=== PATIENT | female | born 1985 | race Caucasian/White ===

== ENCOUNTER 2020-03-12 23:02 | Inpatient (IN) | payer OTHER ==
[~2020-03-12] VITALS: Ht 170.2 cm; Wt 83.0 kg
--- NOTE | ~2020-03-12 | HC ---
[facility] [place] [address] CONSULTATION Name: SHELTON BECERRA Room #: 240-P [facility] IN M.R.#: [id number] Admission: 03/13/20 Attend Phys: John Sutton MD Discharge: 03/17/20 Date of : 87 Report #: [id number] THIS REPORT FOR: cc: [facility] - Clinic physician unknown [facility] - Clinic physician unknown Jose Javier MD ~ DATE OF SERVICE: 03/16/2020 PHYSICIAN REQUESTING CONSULT: Dr. Thong Cote, Dr. John Sutton, Dr. Sterling Mckinney, Dr. Bharat Gonzalez. REASON FOR CONSULTATION: Thrombocytopenia, DVT and possible HIT antibody. HISTORY OF PRESENT ILLNESS: The patient is a 34-year-old female who was brought to the ER with mental status changes and then subsequently thought to have urosepsis with Staphylococcus bacteremia. She reportedly had been to several other ERs in the last several months, may have had a buttocks abscess. We are consulted because on admit, her platelets were 196,000, the next draw showed 84,000, next 132, 000. At the same time, her total bilirubin was elevated at 3.1, creatinine was around 4.8, albumin about 2.2. CAT scan chest, abdomen and pelvis shows innumerable pulmonary nodules unsure if infectious or malignant. Ultrasound of the right leg done last night showed a nonocclusive right common femoral and right external iliac thrombosis. She is on dialysis. The patient is unable to provide history. FAMILY HISTORY: Unobtainable and noncontributory at this point. SOCIAL HISTORY: Note that drug screen, she was positive for marijuana, opiates, benzodiazepines and amphetamines. PHYSICAL EXAMINATION: GENERAL: The patient appears her age. She is a female in the ICU on mechanical ventilator, on multiple pressors. CURRENT VITAL SIGNS: Height is reported as 5 feet 7 inches and 170.2 cm. Weight is reported today as 182 pounds or 83 kilos. Note that earlier on admit, it was 151 pounds on the and yesterday 162 pounds. The last several have been bed weights. Blood pressure is currently 119/40, respirations 29, pulse 113, currently afebrile at 98. MOOD: The patient is sedated. HEENT: Face is symmetrical. Note, there are no hemorrhages noted on her conjunctiva with membranes inside her lower eyelids. Likewise, there is no sign of microemboli in her nailbeds or her pads of her fingers or her toes. There are no signs of microemboli that I discern on skin exam. Oropharynx tubes does have some slight blood that may be from post-intubation. LUNGS: Slightly coarse and symmetric. [facility] [address] [place] [address] CONSULTATION Name: SHELTON BECERRA ETHAN Room #: 240-P DIS IN M.R.#: [id number] Admission: 03/13/20 Attend Phys: John Sutton MD Discharge: 03/17/20 Date of : 86 Report #: [id number] HEART: Regular rate, though slightly tachycardic. LYMPHATICS: No enlarged lymph nodes in the supraclavicular, cervical, axillary or inguinal region. ABDOMEN: Slightly obese. No organomegaly. It is gassy on percussion. EXTREMITIES: Without clubbing, cyanosis. There maybe 2+ or 1 mm edema at the ankles. Little bit of doughiness in the calves and upper thighs. LABORATORY DATA: Lab review: Notable for a creatinine today of 3.7. She is getting ready for dialysis. Glucose has been around 160. AST on admission 51, today's is pending. Total bilirubin 3.1 on admit, today is pending. Direct bilirubin pending. Alkaline phosphatase slightly elevated at 163 on admit, today is pending. Albumin 1.1 on today's lab draw, was 2.2 on admit. LDH drawn today is pending. No previous values. Iron levels drawn today pending. Initial INR was 1.2 on 03/15/2020. APTT initially on 03/15/2020 was 46.5, today on argatroban is recently 70.3. Fibrinogen has been good at 849. White count on admit 4, today 35.6; hemoglobin on admit 12.2, today 7.9; MCV 87, stable; platelets as mentioned above 196 on admit, today 52. Note, the patient did receive a transfusion after midnight since the lab value of 24 yesterday. The patient has increased bands and also on admit had 3 metamyelocytes. Retic count pending. Peripheral smear review pending. Haptoglobin elevated at 492. COVID antigen is negative. TSH 0.999. Ferritin elevated at 2367, folate and B12 ordered today are pending. Hepatitis B surface antibody reactive, hepatitis B surface antigen was negative. If I understand correctly, I think this means immunity, but does not suggest past infection, but we will defer to Infectious Disease. A 25-hydroxy D ordered and pending. Procalcitonin elevated at 101.25. UA notable for 2+ bilirubin. ____ nitrite positive. White cells were in clumps on admit. IMAGING: Includes of note, the CT chest, abdomen and pelvis notable for innumerable nodular pulmonary opacities and patchy areas of ground glass opacities. Nonspecific though infectious etiology including COVID the possibility, also mentioned diffuse pulmonary metastatic disease, could be considered. No malignancy noted in the abdomen or pelvis. Also, note that mentioned that the ultrasound Doppler of lower extremities done on 03/15/2020 showed right leg venous Doppler showing nonocclusive thrombus involving right common femoral vein and external iliac vein, left lower leg was clear. Upper extremities were normal except for small segment ____ IV site showing superficial small segmental thrombus. CURRENT MEDICATIONS: Include dobutamine drip, vancomycin IV, propofol IV, clindamycin IV, argatroban drip to tolerate, amiodarone, budesonide respiratory therapy, phenylephrine drip p.r.n., metoprolol p.r.n., hydrocortisone 100 mg q. 6 hours IV scheduled, ipratropium and albuterol q. 4 inhalation therapy, vasopressin p.r.n., fentanyl p.r.n., midazolam p.r.n., norepinephrine p.r.n., lorazepam p.r.n., dexmedetomidine p.r.n., sodium bicarbonate IV, [place] [address] CONSULTATION Name: HERNANSHELTON ETHAN Room #: 240-P [facility] IN M.R.#: [id number] Admission: 03/13/20 Attend Phys: John Sutton MD Discharge: 03/17/20 Date of : 86 Report #: [id number] 7 mg, pantoprazole 40 daily orally, Tylenol p.r.n. and Zofran p.r.n., IVIG 60 grams one time. ASSESSMENT AND PLAN: 1. Thrombocytopenia in setting of sepsis and deep venous thrombosis and heparin. Presentation would suggest against immune thrombocytopenic purpura and could be consistent, though it will be somewhat acute for heparin-induced thrombocytopenia, but given this concern, we will await heparin-induced antibody and I would agree with use of argatroban as an anticoagulant at this time. Could transfuse platelets to keep them above 20 or higher if bleeding. Await heparin-induced thrombocytopenia antibody, will also check iron, B12, folate. We will await peripheral smear review. Given setting, I would doubt that this is thrombotic thrombocytopenic purpura or hemolytic uremic syndrome. 2. Anemia, may be partly hydration as the patient, by records may have gained 20-30 pounds or received 20-30 pounds of fluid since admission. No signs of obvious bleeding. Await LDH and total bilirubin to try to help tell whether the patient is having hemolysis or not. We will also await peripheral smear review. Suspect this is related to the sepsis. 3. Acute kidney injury, dialysis and management per others. 4. Respiratory failure. Continue mechanical ventilation and O2 and pressor support. 5. Hypertension and urosepsis, antibiotics and pressors per others. 6. Staphylococcus bacteremia. Await transesophageal echo to look for vegetations. 7. Abnormal CT chest, may be infectious or septic emboli. We will need serial scans to follow this. 8. Polysubstance abuse. We will need social work involvement as if and when the patient improves. 9. ____ DVT, argatroban for now. This most likely be a provoked clot, though we will wait to see what other test results show up. 10. Protein-calorie malnutrition, severely malnourished. We will need nutritional support. We will follow. By: [id number] Jose Javier MD /nt
[~2020-03-12 23:02] MED LIST: ACETAMINOPHEN-1 EAC1 PO; NAPROSYN500 MG PO; NOHOMEMEDICATIONS; VEETIDS 250MG250 M1 PO
[2020-03-12 23:03] VITALS: BP 117/74
[2020-03-12 23:25] LABS: HEMATOCRIT 36.6 % (37.0-47.0); HEMOGLOBIN 12.2 gm/dL (12.0-15.0); MCH 29.1 pg (26.0-34.0); MCHC 33.4 g/dL (28.0-37.0); PLATELET COUNT 196 thou/uL (150-400); RBC 4.21 mil/uL (4.20-5.00); RDW 12.9 % (10.5-14.5)
[2020-03-12 23:31] LABS: CALCIUM 7.9 mg/dL (8.5-10.1); CREATININE 4.8 mg/dL (0.6-1.0); POTASSIUM 3.2 mmol/L (3.5-5.1)
[2020-03-12 23:38] LABS: ALBUMIN 2.2 g/dL (3.4-5.0); TOTAL BILIRUBIN 3.1 mg/dL (0.2-1.0); TOTAL PROTEIN 6.8 g/dL (6.4-8.2)
[2020-03-12 23:57] LABS: URINE BILIRUBIN 2+ (Negative); URINE BLOOD 1+ (Negative); URINE CLARITY SL CLOUDY; URINE COLOR YELLOW; URINE GLUCOSE-RANDOM* TRACE (Negative); URINE KETONES TRACE (Negative); URINE LEUKOCYTES-REFLEX TRACE (Negative); URINE NITRITE-REFLEX POSITIVE (Negative); URINE PROTEIN (DIPSTICK) 2+ (Negative); URINE SPECIFIC GRAVITY 1.025 (1.005-1.035)
[2020-03-12 23:59] LABS: ICTOTEST (BILI CONFIRMATORY) Positive (Negative)
[2020-03-13] VITALS (19 sets, daily range): BP systolic 98–117; BP diastolic 44–74
--- NOTE | 2020-03-13 00:08 | NUR ---
CALLED KAREN AT [phone]
[2020-03-13 00:21] LABS: ABSOLUTE NEUTROPHILS 3.6 thou/uL (1.4-8.2); METAMYELOCYTES 3 %
[2020-03-13 00:36] LABS: SQUAMOUS 4-10 Moderate /LPF (0-3)
[2020-03-13 00:37] LABS: BACTERIA-REFLEX 1-9 Few /HPF (None Seen); CASTS None Seen /LPF (None Seen); CRYSTALS None Seen /LPF (None Seen); MUCUS 0-3 Light strn/LPF (None Seen); TRANSITIONAL EPITHEL CELL 0-3 Few /LPF (None Seen); URINE RBC 0-2 Rare /HPF (0-2); URINE WBC-REFLEX >25 Many /HPF (0-5); WBC CLUMPS Few (None Seen)
[2020-03-13 02:14] LABS: TROPONIN-I 0.14 ng/mL (<0.06)
[2020-03-13 02:56] LABS: BE(vivo) -9.1 mmol/L (-2 to +3); PCO2 23.2 mmHg (35.0-45.0); PO2 87.3 mmHg (80.0-100.0); pH 7.398 (7.360-7.450); sO2 96.8 % (92.0-98.0)
--- NOTE | 2020-03-13 07:39 | NUR ---
Patient here from the ER at 0610. Admitted to room 240. Patient awake and talking, unable to move self from ER cart to ICU bed. Patient yelled out in pain. States that her whole body hurts, aches. Patient is able to participate in admission. Takes no medication. Doesn't have a pharmacy and has no pervious medical history. Her home life seems irratic as she sometimes stays with her sister and her family has temporary guardianship of her children. See documentation on interventions for assessment details.
--- NOTE | 2020-03-13 08:57 | EKG ---
[address] [place] [address] ELECTROCARDIOGRAM REPORT Name: SHELTON BECERRA ETHAN Room #: 240-P ADM IN M.R.#: [id number] Admission: 03/13/20 Attend Phys: Brandee Mckeon MD Discharge: Date of : 86 Report #: [id number] [facility] ED Test Date: 2020-03-12 Test Time: 23:30:54 Pat Name: SHELTON BECERRA Department: Room: 240 Gender: F Planning Aide: DOUG : 1985 Requested By: Federico Johnson Order Number: [id number] MD: Austin Greenberg Measurements Intervals Ada Rate: 148 P: 81 GA: 37 QRS: 69 QRSD: 114 T: 27 QT: 283 QTc: 445 Interpretive Statements SINUS TACHYCARDIA Artifact in lead(s) V3,V4 No previous ECG available for comparison Electronically Signed On 03-13-2020 8:57:17 [employer] by Austin Greenberg [email or web address] <ELECTRONICALLY SIGNED> By: Austin Greenberg MD, [facility] 03/13/20 0857 2330 2330 Austin Greenberg MD, FACC /EPI
--- NOTE | 2020-03-13 12:30 | NUR ---
SPOKE WITH DR WHITAKER AND UPDATED HIM ON PATIENT'S LAB AND STATUS
--- NOTE | 2020-03-13 14:30 | NUR ---
DR ELLIS IN TO EXAMINE PATIENT AND AWARE OF LESION ON RT BUTTOCK. PIÑA CATH INSERTED URINE FOR DRUG SCREEN OBTAINED AND MRSA CULTURE TAKEN TO LAB. PATIENT IS WATCHING TV AND ON THE PHONE. HEART RATE REMAINS ELEVATED AND O2 AT 2L WITH SAT'S IN THE UPPER TO MID 90'S WILL CONTINUE TO MONITOR.
--- NOTE | 2020-03-13 15:00 | NUR ---
SPOKE WITH SHELTON SANTILLAN PER THE PATIENT REQUEST AND UPDATED HER ON PATIENT STATUS. ALSO SPOKE WITH MARLEE ISRAEL AND UPDATED HER PER THE PATIENT REQUEST.
[2020-03-13 15:44] LABS: AMP/METHAMP POSITIVE (Negative); BARBITURATES Negative (Negative); BENZODIAZEPINES POSITIVE (Negative); COCAINE Negative (Negative); METHADONE Negative (Negative); OPIATES POSITIVE (Negative); PCP Negative (Negative)
--- NOTE | 2020-03-13 16:00 | NUR ---
SPOKE WITH PATIENT'S BOYFRIEND AND UPDATED HIM TO THE PATIENT STATUS AND POC. PATIENT ALSO UPDATED ON THE POC
--- NOTE | 2020-03-13 22:03 | HC ---
[facility] [place] [address] [place] [address] CONSULTATION Name: SHELTON BECERRA Room #: 240-P ADM IN M.R.#: [id number] Admission: 03/13/20 Attend Phys: Brandee Mckeon MD Discharge: Date of : 87 Report #: [id number] THIS REPORT FOR: cc: [facility] - Clinic physician unknown [facility] - Clinic physician unknown Sterling Mckinney MD ~ DATE OF SERVICE: 03/13/2020 INFECTIOUS DISEASE CONSULTATION REASON FOR CONSULTATION: I was asked to evaluate concerning sepsis and acute renal failure. HISTORY OF PRESENT ILLNESS: The patient is a 34-year-old who presented to the Emergency Room after being seen at [facility] over this past week. She had furuncle to her right buttock and was treated with Bactrim. She presents now with generalized weakness, diffuse pain, shortness of breath, nonproductive cough. Decreased urine output, nausea. She does use drugs including methamphetamines. The patient denies any recent use or IV drug use. On presentation to the Emergency Room, she was hypoxic, tachycardic, dehydrated. CT scan showed bilateral pulmonary infiltrates, nodular in nature. She is placed on IV antibiotic therapy. Blood cultures were obtained. Now in the Intensive Care Unit. The patient denies any chest pain or palpitations. No abdominal pain, back or flank pain, specifically. She just states that she hurts all over. She screams out with trying to move her in any fashion. Denies any dysuria. She has had no sputum production or hemoptysis. REVIEW OF SYSTEMS: A 14-point review of systems as noted above. No additions. She denied any previous medical issues. Denies use of alcohol or recreational drugs other than marijuana and previous methamphetamines. When confronted with her drug screen, she denied that she used intravenous or other recreational drugs in the recent past. FAMILY HISTORY: Negative. SOCIAL HISTORY: As noted above. She states that she is HIV and hepatitis negative. ALLERGIES: None known. MEDICATIONS: As noted on her MAR, now on vancomycin and Zosyn. PHYSICAL EXAMINATION: VITAL SIGNS: She was afebrile and hemodynamically stable. Oxygen saturation [facility] [address] [place] [address] CONSULTATION Name: SHELTON BECERRA ETHAN Room #: 240-P [facility] IN .R.#: [id number] Admission: 03/13/20 Attend Phys: Brandee Mckeon MD Discharge: Date of : 87 Report #: [id number] was stable on room air. SKIN: She has multiple areas of folliculitis and one furuncle to her right buttock, which were in the healing stages. These are mostly on her lower extremities. No other rashes. No adenopathy. HEENT: Eyes without scleral icterus. No petechial hemorrhages. Mouth without mucositis with poor dentition. Multiple fractured teeth. Looks most consistent with methamphetamine dentition. NECK: Supple. LUNGS: Coarse breath sounds posteriorly, mostly in the mid posterior chest. HEART: Regular rate without appreciable murmur, gallop or rub. ABDOMEN: Soft, diffusely tender. She was tender all over. No appreciable mass or hepatosplenomegaly. GENITAL AND RECTAL: Not performed. EXTREMITIES: Without clubbing, cyanosis or edema. No evidence of Janeway's lesions or Osler's nodes. No petechial hemorrhages evident. NEUROLOGIC: Cranial nerves intact. Strength in upper and lower extremities within normal limits. Mood was anxious and crying out and very emotional. LABORATORY STUDIES: Reviewed. MICROBIOLOGY: Reviewed with positive blood culture for Staph 2/2. I did call [facility] noting she had a positive urine culture from February 10 with E. coli that was pansensitive and negative blood cultures at that time. IMPRESSION: A 34-year-old with staphylococcal bacteremia, bilateral pulmonary infiltrates, which are nodular in nature. Suspecting right-sided endocarditis. She has recreational drug use and I suspect likely does do intravenous drugs at some point. She has acute kidney injury with a creatinine of 4.8. RECOMMENDATIONS: We will continue with anti-staphylococcal coverage. MRSA screen. Fluid resuscitation. Echocardiogram. Repeat blood cultures. <ELECTRONICALLY SIGNED> By: Sterling Mckinney MD 03/13/202202 1620 22 Sterling Mckinney MD /nt
[2020-03-14] VITALS (38 sets, daily range): BP systolic 90–132; BP diastolic 42–68
[2020-03-14 04:19] LABS: HEMATOCRIT 33.5 % (37.0-47.0); HEMOGLOBIN 11.2 gm/dL (12.0-15.0); MCHC 33.5 g/dL (28.0-37.0); MCV 86.8 fL (80.0-100.0); RBC 3.86 mil/uL (4.20-5.00); RDW 13.1 % (10.5-14.5); WBC 2.2 thou/uL (4.0-11.0)
[2020-03-14 04:33] LABS: ALBUMIN 1.4 g/dL (3.4-5.0); CALCIUM 6.4 mg/dL (8.5-10.1); CREATININE 5.3 mg/dL (0.6-1.0); MAGNESIUM 2.1 mg/dL (1.8-2.4); PHOSPHORUS 5.5 mg/dL (2.5-4.9); POTASSIUM 3.7 mmol/L (3.5-5.1)
--- NOTE | 2020-03-14 07:31 | NUR ---
Most recent lactic acid is 4.2.Patient has increasing oxygen demand from O2 2L NC to 8L NC.QA DEVELOPER was informed.Pulmonary was consulted.Pain poorly controlled with tylenol;hydrocodone x 1 was ordered and given.IV fluids infusing.Monitor shows sinus tachy.POC continued.
--- NOTE | 2020-03-14 09:09 | 2DMMODE ---
[facility] [place] [address] 2 D/M-MODE ECHOCARDIOGRAM Name: SHELTON BECERRA ETHAN Room #: 240-P ADM IN M.R.#: [id number] Admission: 03/13/20 Attend Phys: Brandee Mckeon MD Discharge: Date of : 86 Report #: [id number] THIS REPORT FOR: cc: [facility] - Clinic physician unknown [facility] - Clinic physician unknown Austin Greenberg MD [facility] ~ APPROVED REPORT Study performed: 03/14/2020 08:33:06 EXAM: Comprehensive 2D, Doppler, and color-flow Echocardiogram Patient Location: ICU Room #: 240 Status: routine BSA: 1.68 HR: 125 bpm BP: 122/63 mmHg Rhythm: Tachycardia Other Information Study Quality: Good Indications Rule out endocarditis. Chest pain, SOB, elevated troponin. Hx: Drug abuse 2D Dimensions RVDd: 34.44 mm IVSd: 8.83 (7-11mm) LVOT Diam: 19.97 (18-24mm) LVDd: 43.39 mm PWd: 9.45 (7-11mm) LVDs: 34.34 (25-40mm) Aortic Root: 29.29 mm Volumes Left Atrial Volume (Systole) Single Plane 4CH: 19.74 mL Single Plane 2CH: 34.61 mL LA ESV Index: 18.00 mL/m2 Aortic Valve AoV Peak Reji.: 1.42 m/s AO Peak Gr.: 8.09 mmHg LVOT Max P.66 mmHg LVOT Max V: 1.19 m/s ERAN Vmax: 2.62 cm2 [facility] [address] [place] [address] 2 D/M-MODE ECHOCARDIOGRAM Name: SHELTON BECERRA ETHAN Room #: 240-P [facility] IN M.R.#: [id number] Admission: 03/13/20 Attend Phys: Brandee Mckeon, Discharge: Date of : 87 Report #: [id number] Mitral Valve E/A Ratio: 0.8 MV Decel. Time: 127.03 ms MV E Max Reji.: 0.58 m/s MV A Reji.: 0.74 m/s MV PHT: 36.84 ms IVRT: 55.36 ms Pulmonary Valve PV Peak Reji.: 1.03 m/s PV Peak Gr.: 4.27 mmHg Pulmonary Vein P Vein S: 0.62 m/s P Vein D: 0.45 m/s P Vein S/D Ratio: 1.38 Tricuspid Valve RAP Estimate: 5.00 mmHg Left Ventricle The left ventricle is normal size. There is normal LV segmental wall motion. There is normal left ventricular wall thickness. Left ventricular systolic function is normal. LVEF is 50-55%. Mild diastolic dysfunction is present. Right Ventricle The right ventricle is normal size. The right ventricular systolic function is normal. Atria The left atrium size is normal. The right atrium size is normal. Aortic Valve The aortic valve is normal in structure. No aortic regurgitation is present. There is no aortic valve vegetation seen. There is no aortic valvular stenosis. Mitral Valve The mitral valve is normal in structure. There is no mitral valve regurgitation noted. There is no mitral valve vegetation seen. No evidence of mitral valve stenosis. Tricuspid Valve The tricuspid valve is normal in structure. There is no tricuspid [facility] [address] [place] [address] 2 D/M-MODE ECHOCARDIOGRAM Name: SHELTON BECERRA [facility] Room #: 240-P [facility] IN ..#: [id number] Admission: 03/13/20 Attend Phys: Brandee Mckeon, Discharge: Date of : 87 Report #: [id number] valve regurgitation noted. Unable to assess PA pressure. There is no tricuspid valve vegetation seen. Pulmonic Valve Pulmonic valve is not well visualized. Great Vessels The aortic root is normal in size. Ascending aorta is not well visualized. IVC is normal in size and collapses >50% with inspiration. Pericardium There is no pericardial effusion. <Conclusion> Normal left ventricle size/wall thickness Ejection fraction 55% Grade 1 diastolic dysfunction Normal right ventricular size/function Normal atrial size Color-flow Doppler study performed aortic/mitral/tricuspid/pulmonary valve Normal aortic/mitral valve structure/ function No evidence of tricuspid valve insufficiency No pericardial effusion <ELECTRONICALLY SIGNED> By: Austin Greenberg MD, FACC 03/14/20908 8 8 Austin Greenberg MD, [facility] /INF
[2020-03-14 11:52] LABS: PROT/CREAT RATIO 2.3; URINE CREATININE-RANDOM* 91.9 mg/dL; URINE PROTEIN-RANDOM* 214.6 mg/dL (<11.9)
--- NOTE | 2020-03-14 12:09 | HC ---
[facility] [place] [address] CONSULTATION Name: SHELTON BECERRA Room #: 240-P ADM IN M.R.#: [id number] Admission: 03/13/20 Attend Phys: John Sutton MD Discharge: Date of : 87 Report #: [id number] THIS REPORT FOR: cc: [facility] - Clinic physician unknown [facility] - Clinic physician unknown Zamzam Valdes MD ~ REASON FOR CONSULTATION: Elevated creatinine. REASON FOR THE PRESENTATION: Not feeling well of few days' duration. HISTORY OF PRESENT ILLNESS: A 34-year-old who has not been feeling well in the last week or so. She had generalized weakness. This was associated with subjective fever. She reports that she visited with another facility on Saturday and Saturday and was discharged home. She is not known to have any previous medical problems as per the patient. She does not take any regular medications. She is not diabetic. She is not hypertensive. She reported to occasional nausea and vomiting. She also reported to occasional chest pain. The patient was found to be hypotensive and acute kidney injury with a creatinine value of 4.8 on arrival. We do not really know what her baseline is. She was also found to have lactic acidosis. Liver enzymes were also elevated. CT chest was suggestive of multiple pulmonary nodules. PAST MEDICAL HISTORY: None per the patient. PAST SURGICAL HISTORY: She denies any prior surgical history. FAMILY HISTORY: No known chronic kidney disease in the family. SOCIAL HISTORY: Denies drug or alcohol abuse. ALLERGIES: None. HOME MEDICATIONS: None. REVIEW OF SYSTEMS: GENERAL: Significant for weakness, fatigue, and malaise. CARDIOVASCULAR: Significant for chest pain. PULMONARY: Significant for shortness of breath. No cough or hemoptysis. GASTROINTESTINAL: Reduced appetite with occasional nausea and vomiting. NEUROLOGICAL: Weakness, but no syncope. SKIN: No rash or ulcerations. PHYSICAL EXAMINATION: VITAL SIGNS: Temperature is 36.5, blood pressure is 98/54. HEAD AND NECK: Emaciated and cachectic. CHEST: Limited air entry bilaterally with occasional rhonchi. [facility] [address] [place] [address] CONSULTATION Name: SHELTON BECERRA [facility] Room #: 240-P ADM IN M.R.#: [id number] Admission: 03/13/20 Attend Phys: John Sutton MD Discharge: Date of : 87 Report #: [id number] CARDIOVASCULAR: No rub detected. ABDOMEN: Soft, nontender with no hepatosplenomegaly. EXTREMITIES: Lower extremities, no edema. LABORATORY VALUES: From yesterday revealed the following: Sodium was 136, potassium was 3.2, chloride was 96, carbon dioxide was 20, anion gap was 20, BUN was 41, creatinine was 4.8. Total bilirubin is elevated at 3.1. CPK was 817. Alkaline phosphatase was 163. ASSESSMENT AND PLAN: 1. Acute kidney injury, unknown creatinine baseline. 2. Nonspecific disease with multiple complaints on presentation including generalized body aches, chest pain. The patient was ruled out for COVID-19. She is still under investigation. 3. From the renal perspective, I will initiate the appropriate workup for the patient. I will reformulate her fluid to address her acidosis. 4. Replace potassium. 5. Avoid nephrotoxic medications. 6. Continue to follow daily electrolytes, renal function panel, urine output. 7. Obtain her other facility laboratory values that were done earlier this past week. 8. We will continue to follow. <ELECTRONICALLY SIGNED> By: Zamzam Valdes MD 03/14/20 1209 0845 Zamzam Valdes MD /nt
[2020-03-14 12:24] LABS: BE(vivo) -7.1 mmol/L (-2 to +3); HCO3 15.5 mmol/L (22.0-26.0); PCO2 23.5 mmHg (35.0-45.0); PO2 59.7 mmHg (80.0-100.0); pH 7.437 (7.360-7.450); sO2 92.3 % (92.0-98.0)
--- NOTE | 2020-03-14 19:15 | NUR ---
AAOX4. VERY ANXIOUS. CRIES OUT IF TOUCHED. TACHYPNEIC AND TACHYCARDIA. ST PER TELE. POOR ORAL INTAKE. OLIGURIA PER PIÑA, SAMPLE SENT TO LAB FOR ANALYSIS. FALL PRECAUTIONS IN PLACE.
--- NOTE | 2020-03-14 19:20 | NUR ---
1919-SPOKE W/ DR. GOODEN ABOUT PT SATTING 88% ON 15L HI-JS; HE SAID VENTIMASK OR BIPAP IS FINE TO START SINCE PT IS MOUTH BREATHING. CALLED RT TO UPDATE, THEY WILL PLACE ON MASK.
[2020-03-14 20:06] LABS: COMPLEMENT-C3 118 mg/dL (82-167); COMPLEMENT-C4 11 mg/dL (12-38)
[2020-03-15] VITALS (116 sets, daily range): BP systolic 77–147; BP diastolic 30–73
[2020-03-15 02:13] LABS: BE(vivo) -3.8 mmol/L (-2 to +3); HCO3 19.8 mmol/L (22.0-26.0); PCO2 31.2 mmHg (35.0-45.0); pH 7.421 (7.360-7.450); sO2 89.9 % (92.0-98.0)
[2020-03-15 02:14] LABS: PO2 55.4 mmHg (80.0-100.0)
[2020-03-15 06:36] LABS: HEMOGLOBIN 10.4 gm/dL (12.0-15.0)
[2020-03-15 06:38] LABS: HEMATOCRIT 31.3 % (37.0-47.0); MCH 28.9 pg (26.0-34.0); MCHC 33.2 g/dL (28.0-37.0); MCV 86.9 fL (80.0-100.0); RBC 3.61 mil/uL (4.20-5.00); RDW 13.8 % (10.5-14.5)
[2020-03-15 06:45] LABS: WBC 16.8 thou/uL (4.0-11.0)
[2020-03-15 06:51] LABS: ALBUMIN 1.1 g/dL (3.4-5.0); CREATININE 5.4 mg/dL (0.6-1.0); PHOSPHORUS 7.1 mg/dL (2.5-4.9); POTASSIUM 4.5 mmol/L (3.5-5.1)
[2020-03-15 07:00] LABS: CALCIUM 5.8 mg/dL (8.5-10.1)
[2020-03-15 08:18] LABS: BE(vivo) -5.3 mmol/L (-2 to +3); HCO3 20.6 mmol/L (22.0-26.0); PCO2 41.6 mmHg (35.0-45.0); PO2 67.5 mmHg (80.0-100.0); sO2 91.9 % (92.0-98.0)
[2020-03-15 08:21] LABS: pH 7.313 (7.360-7.450)
--- NOTE | 2020-03-15 08:56 | NUR ---
vascular access consulted for cvad. PLATELETES 32, SPOKE TO RN, PT MUST GO TO IR, PLATELETES TOO LOW FOR IJ BY VAT. PT IS RENAL SO PICC NOT AN OPTION.
[2020-03-15 09:15] LABS: APTT 46.5 Seconds (24.5-32.8); INR 1.2; PROTIME 12.7 Seconds (9.3-11.4)
--- NOTE | 2020-03-15 14:00 | NUR ---
PT SISTER MARLEE UPDATED ON THE INTUBATION PROCEDURE AND CENTRAL LINE PLACEMENT BY DR. GOODEN. NOTIFIED ABOUT GENI WHALEN WISHING TO TALK TO THE HOSPITALIST. GENI WHALEN'S QUESTIONS WERE ANSWERED BY THIS RN.
[2020-03-15 14:05] LABS: BE(vivo) -6.9 mmol/L (-2 to +3); HCO3 19.6 mmol/L (22.0-26.0); PCO2 43.3 mmHg (35.0-45.0); sO2 90.1 % (92.0-98.0)
[2020-03-15 14:07] LABS: pH 7.274 (7.360-7.450)
[2020-03-15 19:19] LABS: HEMOGLOBIN 10.1 gm/dL (12.0-15.0); RBC 3.48 mil/uL (4.20-5.00); WBC 26.6 thou/uL (4.0-11.0)
[2020-03-15 19:20] LABS: HEMATOCRIT 29.8 % (37.0-47.0); MCHC 33.8 g/dL (28.0-37.0); MCV 85.7 fL (80.0-100.0); RDW 13.6 % (10.5-14.5)
--- NOTE | 2020-03-15 19:58 | NUR ---
729 NOTIFED RENAL OF CRITICAL POTASSIUM AND CREATININE DECREASED URINE OUTPUT OVER NIGHT. [address] GOODEN OF CRITICAL ABG. PT BREATHING IN 30-40'S THROUGH ENTIRE MORNING DESAT TO 85%. INTUBATED AT 1110. REMAINS MAX ON LEVO AND VASO. STARTED ON JELANI AT 1800. OUTPUT 15ML FROM [id number]. RENAL AWARE. DIALYSIS CATH AND DIALYSED @ 1730. PT AFEBRILE. NOT PROGRESSING IN PLAN OF CARE
--- NOTE | 2020-03-15 23:00 | NUR ---
ASSUMED CARE AT 1900. UPON ON ARRIVAL, O2 SATS 50%, DR. GOODEN NOTIFIED BY DAY RN JOSE, RT DENICE PATRICIO PT. VENT SETTINGS ADJUSTED, REFER TO VENT CHARTING; PT ON 3 PRESSORS, BP STABLE AT THIS TIME, AND O2 SAT RETURNED TO UPPER 90'S. 2029-DR. GOODEN AT BEDSIDE TO PLACE ART LINE. ORDERED STAT US OF BILATERAL UPPER AND LOWER EXTREMITIES TO R/O CLOTS. DR. GOODEN ALSO PLACED CONSULT TO DR. RODRIGUEZ FOR THROMBOCYTOPENIA. ORDERED PLATELET TRANSFUSION AND START ARGATROBAN DRIP. DR. ELLIS ALSO AT BEDSIDE, ABX ADJUSTED. 2254-SPOKE WITH PT'S SISTER MARLEE TO GIVE UPDATE AND OBTAIN CONSENT FOR PLT TRANSFUSION. TWO RN'S VERIFIED CONSENT OF BLOOD PRODUCT.
[2020-03-15 23:55] LABS: BE(vivo) 1.1 mmol/L (-2 to +3); HCO3 25.3 mmol/L (22.0-26.0); PCO2 38.4 mmHg (35.0-45.0); pH 7.436 (7.360-7.450); sO2 95.4 % (92.0-98.0)
[2020-03-16] VITALS (19 sets, daily range): BP systolic 84–128; BP diastolic 35–82
--- NOTE | 2020-03-16 02:24 | NUR ---
ARGATROBAN DRIP: AT 0043 03/16/20 APTT: 74.4 - DRIP RUNNING AT 0.5 MCG/KG/MIN, 2.2 ML/HR. - NO CHANGE IN SETTINGS NEEDED. NEXT APPT LAB DRAW AT 0245 03/16/20.
[2020-03-16 05:23] LABS: HEMATOCRIT 23.1 % (37.0-47.0); MCH 29.3 pg (26.0-34.0); MCHC 34.1 g/dL (28.0-37.0); MCV 85.7 fL (80.0-100.0); RBC 2.7 mil/uL (4.20-5.00); RDW 13.8 % (10.5-14.5); WBC 35.6 thou/uL (4.0-11.0)
[2020-03-16 05:52] LABS: HEMOGLOBIN 7.9 gm/dL (12.0-15.0)
[2020-03-16 06:09] LABS: ALBUMIN 1.1 g/dL (3.4-5.0); MAGNESIUM 2.3 mg/dL (1.8-2.4); PHOSPHORUS 6.8 mg/dL (2.5-4.9); POTASSIUM 4.9 mmol/L (3.5-5.1)
[2020-03-16 06:14] LABS: CREATININE 3.7 mg/dL (0.6-1.0)
[2020-03-16 06:15] LABS: CALCIUM 5.8 mg/dL (8.5-10.1)
[2020-03-16 07:08] LABS: HEP B SURFACE Ab(ANTI-HBS Reactive (()); HEPATITIS B SURFACE AG Negative (Negative)
[2020-03-16 08:40] LABS: % SATURATION 58 % (20-39); IRON 80 ug/dL (50-170); TIBC 138 ug/dL (250-450)
--- NOTE | 2020-03-16 08:46 | NUR ---
0846- NURSE TALKED WITH PATIENTS SISTER, MARLEE. UPDATED HER ON PATIENT STATUS AND TRUDY RESULTS.
[2020-03-16 08:52] LABS: ABSOLUTE RETIC COUNT 0.007 10^6/uL; OBSERVED RETIC COUNT 0.27 % (0.6-2.6)
--- NOTE | 2020-03-16 09:21 | NUR ---
cm completed initial assessment via telephone w/pt's sister, johanna and john hernández, d/t covid precaution on ICU. pt living in hotel w/john hernández. pt sister, johanna as temp custody of pt's 3 children to all ow time for pt "to get her life together." pt is not emplyeed and has [address] [facility] w/in the last 2 weeks. pt "has had problems w/her kidneys for a long time...stones, infections multiple times."/johanna. pt boyfriend reported pt "stopped eating and wouldn't get out of bed for two days." med assist to follow. cm to cont to follow.
[2020-03-16 09:25] LABS: ALBUMIN 1.1 g/dL (3.4-5.0); DIRECT BILIRUBIN 5.2 mg/dL (<0.1-0.2); TOTAL BILIRUBIN 7.2 mg/dL (0.2-1.0); TOTAL PROTEIN 4.9 g/dL (6.4-8.2)
[2020-03-16 09:36] LABS: FOLIC ACID 7.4 ng/mL (8.6-58.9)
--- NOTE | 2020-03-16 09:41 | TEE ---
[facility] [address] [place] [address] TRANSESOPHAGEAL ECHOCARDIOGRAM Name: SHELTON BECERRA ETHAN Room #: 240-P ADM IN M.R.#: [id number] Admission: 03/13/20 Attend Phys: John Sutton MD Discharge: Date of : 87 Report #: [id number] THIS REPORT FOR: cc: [facility] - Clinic physician unknown [facility] - Clinic physician unknown Austin Greenberg MD [facility] ~ APPROVED REPORT Study performed: 03/16/2020 08:07:32 EXAM: Comprehensive 2D, Doppler, and color-flow Echocardiogram Patient Location: ICU Room #: 240 Status: routine BSA: 1.85 HR: 113 bpm Rhythm: Tachycardia Indications Bacteremia Procedure After obtaining informed consent, patient underwent transesophageal echo in the Bedside. Type of Sedation : Conscious Sedation Sedation was administered by Nurse. Propofol () The TRUDY was performed without complications. Throughout the procedure, the blood pressure, pulse oximetry, cardiac rhythm, and rate were monitored. The patient tolerated the procedure without adverse effects. Recovery from conscious sedation was uneventful and vital signs were stable. Left Ventricle The left ventricle is normal size. There is normal LV segmental wall motion. There is normal left ventricular wall thickness. Left ventricular systolic function is normal. The left ventricular ejection fraction is within the normal range. LVEF is 55-60%. Right Ventricle The right ventricle is normal size. The right ventricular systolic [address] [address] TRANSESOPHAGEAL ECHOCARDIOGRAM Name: SHELTON BECERRA ETHAN Room #: 240-P ADM IN M.R.#: [id number] Admission: 03/13/20 Attend Phys: John Sutton, Discharge: Date of : 87 Report #: [id number] function is normal. Atria The left atrium size is normal. The right atrium size is normal. Aortic Valve The aortic valve is normal in structure. No aortic regurgitation is present. There is no aortic valvular stenosis. Mitral Valve The mitral valve is normal in structure. There is no mitral valve regurgitation noted. No evidence of mitral valve stenosis. Tricuspid Valve The tricuspid valve is normal in structure. There is no tricuspid valve regurgitation noted. Pulmonic Valve The pulmonary valve is normal in structure. There is no pulmonic valvular regurgitation. Great Vessels The aortic root is normal in size. Pericardium There is no pericardial effusion. <Conclusion> Consent was previously obtained Esophageal probe was advanced without difficulty Normal ventricular size/wall thickness Ejection fraction 60% Left atrial appendage, moderate size, no evidence of mass or clot detected Normal atrial size Color-flow Doppler study was performed of the aortic/mitral/tricuspid/pulmonary valve Normal aortic/mitral valve structure and function. No obvious mass or vegetation detected Tricuspid valve was well seen, no obvious mass or vegetation detected No evidence of tricuspid valve insufficiency [facility] [address] [place] [address] TRANSESOPHAGEAL ECHOCARDIOGRAM Name: SHELTON BECERRA Room #: 240-P ADM IN M.R.#: [id number] Admission: 03/13/20 Attend Phys: John Sutton, Discharge: Date of : 87 Report #: [id number] No pericardial effusion. Patient tolerated procedure well. <ELECTRONICALLY SIGNED> By: Austin Greenberg MD, FACC 03/16/20939 9 9 Austin Greenberg MD, FACC /INF
--- NOTE | 2020-03-16 14:58 | NUR ---
1458- NURSE UPDATED PATIENTS SISTER, MARLEE, ON STATUS, QUESTIONS WERE ANSWERED.
--- NOTE | 2020-03-16 15:58 | NUR ---
1230- Patient was sinus rhythm, Dr. Cote placed another central line secondary to multiple medications being infused. Patient went into afib with line placement. Dr. Cote informed of this. Amiodarone being continued at this time, current rate.
--- NOTE | 2020-03-16 18:15 | NUR ---
1814- Patient o2 saturation decreased to the upper 80%, nurse provided suction, which yielded moderate amount of bright red blood. Nurse informed RT of this, O2 saturation increased to 90%. Nurse to continue to monitor. Since going off dialysis, nurse was able to decrease need for pressors, however slow progression for need of increased rates of pressors noted.
--- NOTE | 2020-03-16 20:00 | NUR ---
Patient not progressing towards plan of care as evidenced by increased need for pressors, and continued hemodynamic instability. Plan of care is to continue to monitor patients vital signs through the arterial line, and assess patient as needed.
[2020-03-16 20:07] LABS: HEMATOLOGY COMMENTS Note: (()); HEMOGLOBIN 7.5 g/dL (11.1-15.9)
[2020-03-16 20:10] LABS: MCV 87.2 fL (80.0-100.0)
[2020-03-16 20:13] LABS: MCH 29.1 pg (26.0-34.0); MCHC 33.3 g/dL (28.0-37.0); RBC 1.7 mil/uL (4.20-5.00); RDW 14.1 % (10.5-14.5); WBC 30.6 thou/uL (4.0-11.0)
[2020-03-16 20:19] LABS: HEMATOCRIT 14.8 % (37.0-47.0); HEMOGLOBIN 4.9 gm/dL (12.0-15.0)
--- NOTE | 2020-03-16 20:32 | NUR ---
ASSUMED CARE AT 1900. NOTED CONTINUOUS BLEEDING AT NEW RIGHT SUBCLAVIAN LINE AND LG AMT BLOOD THROUGH IN-LINE SUCTION. PAGE TO DR. GOODEN, CBC ORDERED. 2030-CRITICAL HGB 4.9 AND HCT 14.8, AND PLT DOWN TO 20. NOTIFIED DR. GOODEN, WHO ORDERED TWO UNITS OF PRBC TO START, WELL A UNIT OF DONOR PLT, AND RECHECK CBC AFTER 2ND UNIT COMPLETE.
[2020-03-16 23:32] LABS: BE(vivo) -7.9 mmol/L (-2 to +3); HCO3 20.1 mmol/L (22.0-26.0); PCO2 54.6 mmHg (35.0-45.0); PO2 42.3 mmHg (80.0-100.0); pH 7.183 (7.360-7.450); sO2 65.5 % (92.0-98.0)
[2020-03-16 23:54] LABS: HEMATOCRIT 21.7 % (37.0-47.0); MCH 29.1 pg (26.0-34.0); MCHC 32.2 g/dL (28.0-37.0); MCV 90.4 fL (80.0-100.0); PLATELET COUNT 51 thou/uL (150-400); RBC 2.41 mil/uL (4.20-5.00); RDW 14.2 % (10.5-14.5); WBC 30.2 thou/uL (4.0-11.0)
[2020-03-17 00:45] VITALS: BP 57/41; BP 71/43
[2020-03-17 01:04] LABS: ABSOLUTE NEUTROPHILS 27.2 thou/uL (1.4-8.2)
[2020-03-17 01:05] LABS: ANISOCYTOSIS 1+; BURR CELLS 1+; LARGE PLATELETS FEW; OVALOCYTES 1+; PLATELET ESTIMATE DECREASED; POIKILOCYTOSIS 1+
--- NOTE | 2020-03-17 04:17 | NUR ---
2200-COPIOUS BLEEDING FROM RIGHT SUBCLAVIAN SITE, AND SOILED DIALYSIS CATH SITE; BOTH DRESSINGS CHANGED. 2300-RESTRAINTS OFF, PT NOT RESPONDING TO PAINFUL STIMULI. PT STATUS IN DECLINE, HR ELEVATED, BP DECREASED-DEPENDENT ON FOUR PRESSORS, UNABLE TO GET AN O2 SAT ON THE PULSE OX. TWO UNITS OF PRBC INFUSED. RT LOBITO A SET OF ABG'S. 5-CALLED PT'S SISTER MARLEE TO UPDATE ON CONDITION, EDUCATED THAT EVERY POSSIBLE INTERVENTION WAS BEING DONE BUT PT WAS VERY CRITICAL/UNSTABLE AND HIGH LIKELIHOOD THAT PT WOULD CODE. MARLEE UNDERSTANDABLY DISTRESSED, BUT NOT YET READY TO MAKE PT A DNR, STATED SHE WANTED COMPRESSIONS DONE AT THIS POINT. CHARGE NURSE GILDA ALSO SPOKE WITH HER REGARDING STATUS. 0-CALLED DR. GOODEN WITH CRITICAL ABG'S AND NEW CBC RESULTS AFTER TWO UNITS OF BLOOD, UPDATED ABOUT VS AND PHONE CALL WITH SISTER. TWO MORE UNITS OF BLOOD ORDERED. 0040-VS CONTINUE TO DECLINE, ARTERIAL PRESSURES DROPPING DESPITE FOUR PRESSERS. ALL SEDATIVE MEDICATIONS TURNED OFF. 0110-LOST PLETH FROM ART LINE, NO PULSE FELT, CODE BLUE ACTIVATED--SEE CODE BLUE FLOWSHEET.
--- NOTE | 2020-03-17 04:35 | NUR ---
DR. REYEZ, ED PHYSICIAN, SPOKE WITH SISTER MARLEE DURING CODE, AND AGAIN AFTER HE CALLED TOYuri AT 0140. SPOKE WITH MARLEE AT 0150, ASKED IF SHE AND ONE OTHER PERSON WOULD LIKE TO SEE THE BODY; SHE SAID YES, SHE AND PT'S S.O. WOULD VISIT. BODY CLEANED UP, ETT REMOVED, NEW BEDDING, BODY BAG PLACED UNDERNEATH HER, AND COVERED WITH BLANKET. MOVED TO ROOM 250 FOR VIEWING BY FAMILY. SUMMARY COMPLETED PER PROTOCOL.
--- NOTE | 2020-03-17 04:53 | NUR ---
5743-SPOKE WITH MARLEE AGAIN. SHE STATED SHE WASN'T UP TO SEEING PT IN CURRENT STATE. SHE ALSO REPORTED THE PT'S S.O. WOULD NOT BE COMING UP AT THIS TIME EITHER. SHE DOES NOT KNOW WHAT HOME THEY WILL USE YET, AND UNDERSTANDS THAT WE WILL MOVE THE PT [place] UNTIL A DECISION IS MADE. ASKED HER TO TRY AND CALL BACK EARLY POSSIBLE WITH INFORMATION.
== END 2020-03-17 01:40 | DRG 871 ==
LOC: ER 23:02 → EROBS 03-13 03:09 → ICU 03-13 03:09 → EROBS 03-13 05:56 → ICU 03-13 06:42
PROVIDERS: Emergency Medicine; Hospitalist; Internal Medicine Hematology & Oncology; Internal Medicine Nephrology; Nurse Practitioner Family; Pediatrics; ADMIT Internal Medicine; ATTEND Internal Medicine
PROC: 5A1D70Z Performance of Urinary Filtration, Intermittent, Less than 6 Hours Per Day (ICD-10-PCS; principal; 2020-03-15)
PROC: B548ZZA Ultrasonography of Superior Vena Cava, Guidance (ICD-10-PCS; principal; 2020-03-15)
PROC: 02HV33Z Insertion of Infusion Device into Superior Vena Cava, Percutaneous Approach (ICD-10-PCS; principal; 2020-03-15)
PROC: 5A12012 Performance of Cardiac Output, Single, Manual (ICD-10-PCS; principal; 2020-03-15)
PROC: 5A1945Z Respiratory Ventilation, 24-96 Consecutive Hours (ICD-10-PCS; principal; 2020-03-15)
PROC: 0BH17EZ Insertion of Endotracheal Airway into Trachea, Via Natural or Artificial Opening (ICD-10-PCS; principal; 2020-03-15)
PROC: 5A09357 Assistance with Respiratory Ventilation, Less than 24 Consecutive Hours, Continuous Positive Airway Pressure (ICD-10-PCS; 2020-03-15)
PROC: 30233N1 Transfusion of Nonautologous Red Blood Cells into Peripheral Vein, Percutaneous Approach (ICD-10-PCS; 2020-03-16)
PROC: 30233R1 Transfusion of Nonautologous Platelets into Peripheral Vein, Percutaneous Approach (ICD-10-PCS; 2020-03-16)
PROC: 5A1D70Z Performance of Urinary Filtration, Intermittent, Less than 6 Hours Per Day (ICD-10-PCS; 2020-03-16)
DX: A41.02 Sepsis due to Methicillin resistant Staphylococcus aureus (principal); J18.9 Pneumonia, unspecified organism; N17.0 Acute kidney failure with tubular necrosis; J96.01 Acute respiratory failure with hypoxia; R65.21 Severe sepsis with septic shock; I76 Septic arterial embolism; N39.0 Urinary tract infection, site not specified; D61.818 Other pancytopenia; E46 Unspecified protein-calorie malnutrition; I95.9 Hypotension, unspecified; F19.10 Other psychoactive substance abuse, uncomplicated; F17.210 Nicotine dependence, cigarettes, uncomplicated; E87.6 Hypokalemia; Z20.828 Contact with and (suspected) exposure to other viral communicable diseases; E83.51 Hypocalcemia; Z68.28 Body mass index [BMI] 28.0-28.9, adult; Z79.899 Other long term (current) drug therapy
CPT/HCPCS: 10078; 10203; 32100; 85076